=== PATIENT | female | born 1960 | race Caucasian/White ===

== ENCOUNTER 2018-12-12 09:30 | Day surgery (SDC) | payer BC ==
[2018-12-05 16:09] LABS: BASOPHILS # (AUTO) 0.1 X10'3 (0-0.2); BASOPHILS % (AUTO) 1.1 % (0-1); EOSINOPHILS # (AUTO) 0.1 X10'3 (0-0.9); EOSINOPHILS % (AUTO) 0.9 % (0-6); LYMPHOCYTES # (AUTO) 1.7 X10'3 (1.1-4.8); LYMPHOCYTES % (AUTO) 31.7 % (21-51); MEAN CORPUSCULAR HEMOGLOBIN 29.5 PG (27.0-31.0); MEAN CORPUSCULAR HGB CONC 33.7 g/dL (33.0-36.5); MEAN CORPUSCULAR VOLUME 87.6 FL (78-98); MEAN PLATELET VOLUME 7.3 FL (7.4-10.4); MONOCYTES # (AUTO) 0.3 X10'3 (0-0.9); MONOCYTES % (AUTO) 6.2 % (2-12); NEUTROPHILS # (AUTO) 3.2 X10'3 (1.8-7.7); NEUTROPHILS % (AUTO) 60.1 % (42-75); PRE OP HEMATOCRIT 42.8 % (35.0-45.0); PRE OP HEMOGLOBIN 14.4 g/dL (12.0-16.0); PRE OP PLATELET COUNT 269 X10'3 (140-440); RED BLOOD COUNT 4.88 X10'6 (4.20-5.60); RED CELL DISTRIBUTION WIDTH 14.2 % (11.5-14.5)
[2018-12-05 16:09] LABS: CLARITY,URINE CLOUDY (Clear); COLOR,URINE STRAW (Yellow); GLUCOSE, URINE NEGATIVE (Neg); KETONES,URINE NEGATIVE (Neg); LEUKOCYTE ESTERASE ,URINE NEGATIVE (Neg); NITRITES, URINE NEGATIVE (Neg); OCCULT BLOOD,URINE NEGATIVE (Neg); PH,URINE 6.5 (4.8-8.0); PROTEIN,URINE NEGATIVE (Neg); UROBILINOGEN,URINE 0.2 E.U/dL (0.2-1.0)
[2018-12-05 16:20] LABS: SQUAMOUS EPITHELIAL CELL,UR MANY /LPF (FEW); UA COLLECTION TYPE CLN CATCH MIDSTREAM
[2018-12-05 16:21] LABS: AMORPHOUS PHOSPHATES 3+; BACTERIA,URINE FEW /HPF (Neg); MUCUS STRANDS NONE SEEN /LPF (Neg); RBC,URINE 0-2 /HPF (0-2); WBC,URINE NONE SEEN /HPF (0-4)
[2018-12-05 16:36] LABS: ALBUMIN 3.9 G/DL (3.4-5.0); ALBUMIN/GLOBULIN RATIO 1.1 (1.1-1.5); ALKALINE PHOSPHATASE 63 IU/L (46-116); BLOOD UREA NITROGEN 15 MG/DL (7-18); BUN/CREATININE RATIO 18.5 (6.6-38.0); CALCIUM 9.1 MG/DL (8.5-10.1); CHLORIDE 105 MMOL/L (99-107); CREATININE 0.81 MG/DL (0.40-0.90); PRE OP ALT 35 U/L (30-65); PRE OP ANION GAP 7 (8-16); PRE OP AST 22 U/L (10-37); PRE OP BILIRUB, TOTAL 0.2 MG/DL (0.0-1.0); PRE OP GLUCOSE 104 MG/DL (70-104); PRE OP POTASSIUM 3.8 MMOL/L (3.4-5.1); PRE OP SODIUM 143 MMOL/L (135-145); TOTAL CARBON DIOXIDE 31.5 MMOL/L (24-32); TOTAL PROTEIN 7.4 G/DL (6.4-8.2); eGFR 72 ML/MIN
[2018-12-05 16:41] LABS: PRE OP PROTIME 10.2 SECONDS (9.0-12.0)
[2018-12-12] VITALS (7 sets, daily range): BP systolic 107–142; BP diastolic 57–78
[~2018-12-12] VITALS: Ht 165.1 cm; Wt 65.1 kg
[~2018-12-12 09:30] MED LIST: ASCO500C15 PO; CALC-1051 PO; cefotetan 2gm/isosm dext IVPB 50 ML IV ONE; famotidine 20mg tablet PO ONE; ringers solution, lacted 1,000 ML IV SCH
[2018-12-12] MEDS ORDERED: PREMARIN CREAM VG (10:22)
[2018-12-12] MEDS ORDERED: vasoPRESSIN 20 units/ml inj. ONE (10:24)
[2018-12-12] MEDS ORDERED: clindamycin phosphate 40gm vag cream ONE (10:24)
[2018-12-12] MEDS ORDERED: fentaNYL/PF 50MCG/1 ML 2ML syringe ONE ×2 (11:31→11:48)
[2018-12-12] MEDS ORDERED: MIDAZolam 5mg/5ml vial ONE (11:32)
[2018-12-12] MEDS ORDERED: BUPIVAcaine/PF 2.5mg/ml (0.25%) 10ml vial ONE (11:33)
[2018-12-12] MEDS ORDERED: propofol inj 20 ML IV ONE (11:57)
[2018-12-12] MEDS ORDERED: LIDOcaine 1%/PF 5ML 10 MG/ML VIAL ONE (11:57)
[2018-12-12] MEDS ORDERED: ringers solution, lacted 1,000 ML IV SCH (12:07)
[2018-12-12] MEDS ORDERED: glycopyrrolate 0.2mg/ml inj ONE (12:08)
[2018-12-12] MEDS ORDERED: proCHLORperazine 10 MG/2 ml inj IV PRN (12:10)
[2018-12-12] MEDS ORDERED: ondansetron/PF 4mg/2ml inj IV PRN (12:10)
[2018-12-12] MEDS ORDERED: morphine 4 MG/ML inj SYRINge IV PRN ×2 (12:10)
[2018-12-12] MEDS ORDERED: meperidine/PF 25mg/ml syringe IV PRN ×3 (12:10)
--- NOTE | 2018-12-12 12:25 | NUR ---
Received from OR via , accompanied by Anesthesiologist DR DEMPSEY and report given by Anesthesiolgist. PT SLEEPY BUT WAKES TO VOICE, SKIN WARM AND PINK, MOVES EXT X 4, SAPPHIRE PAD IN PLACE, PIV LEFT HAND LR 100ML/HR, VSS, NO C/O PAIN.
--- NOTE | 2018-12-12 13:05 | NUR ---
PATIENT HAS MET DISCHARGE CRITERIA, PIV REMOVED, DISCHARGE INSTRUCTIONS REVIEWED WITH VERBAL UNDERSTANDING, NO C/O PAIN, PERIPAD CD, PEREZ WATER AND JUICE.
== END 2018-12-12 13:05 | disposition home or self-care (01) ==
LOC: PAS 09:30
PROVIDERS: ATTEND Obstetrics & Gynecology Obstetrics
DX: T81.89XA Other complications of procedures, not elsewhere classified, initial encounter (principal); Y83.8 Other surgical procedures as the cause of abnormal reaction of the patient, or of later complication, without mention of misadventure at the time of the procedure; I42.9 Cardiomyopathy, unspecified; Z90.710 Acquired absence of both cervix and uterus; Z79.899 Other long term (current) drug therapy; Z88.2 Allergy status to sulfonamides; Z72.89 Other problems related to lifestyle
CPT/HCPCS: 36415; 57415; 71046; 80053; 81001; 82948; 84443; 85025; 85610; 85730; 86885; 86900; 86901; 93005; J2001; J2250; J2704; J3010; J3490; A7000; J7120

== ENCOUNTER 2022-08-31 10:33 | Emergency (ER) | payer BC ==
[~2022-08-31] VITALS: Ht 165.1 cm; Wt 72.7 kg
[~2022-08-31 10:33] MED LIST changes: -ASCO500C15 PO; +ASCO500C18 PO; +PREMARIN CREAM VG; -cefotetan 2gm/isosm dext IVPB 50 ML IV ONE; -famotidine 20mg tablet PO ONE; -ringers solution, lacted 1,000 ML IV SCH
[2022-08-31] MEDS ORDERED: propofol 10mg/ml 20ml vial IV ONE (11:40)
--- NOTE | 2022-08-31 12:17 | NUR ---
pt back at baseline - continuing to do post vitals
--- NOTE | 2022-08-31 12:27 | NUR ---
pt keeps stating "it's not in" - post xray shows good placement per MD - pt aware but still not convinced. Meds have been ordered for pain. will medicate pt once available.
[2022-08-31] MEDS ORDERED: ketorolac tromethamine 15mg/ml inj. IV ONE (12:30)
[2022-08-31] MEDS ORDERED: ACET-3068 PO (13:19)
[2022-08-31 13:39] VITALS: BP 144/86
== END 2022-08-31 13:41 | disposition home or self-care (01) ==
LOC: ER 10:33
DX: S43.014A Anterior dislocation of right humerus, initial encounter (principal); Z88.2 Allergy status to sulfonamides; Z79.899 Other long term (current) drug therapy; X58.XXXA Exposure to other specified factors, initial encounter; Y93.89 Activity, other specified; Y92.89 Other specified places as the place of occurrence of the external cause; Y99.8 Other external cause status
CPT/HCPCS: 23650; 73020; 73030; 96374; 99152; 99153; 99285; J1885; J7030; 94760; A4565; A4620